=== PATIENT | male | born 1975 | race Caucasian/White ===

== ENCOUNTER → 2020-01-22 | Outpatient (CLI) | payer OTHER | LOC: COL.RAD 13:22 | DX: M25.512 Pain in left shoulder (principal) | CPT/HCPCS: J3301; Q9967 ==

== ENCOUNTER → 2020-05-12 | Outpatient (CLI) | payer OTHER | LOC: COL.RAD 12:56 | DX: M25.512 Pain in left shoulder (principal) | CPT/HCPCS: J3301; Q9967 ==